=== PATIENT | female | born 1930 | race Two or more races ===

== ENCOUNTER 2018-12-17 14:38 | Inpatient (IN) | payer MEDICARE, MEDICAID ==
[~2018-12-17] VITALS: Ht 162.6 cm; Wt 69.9 kg
--- NOTE | 2018-12-18 17:30 | NUR ---
Admitted from [facility] accompanied by EMT for s/p distal femur condylar fracture. Patient awake, alert x3, Farsi speaking with personal home care rn. Not in any form of distress, no SOB, headaches, chest pains noted. Patient with pain over left leg area rated as 8/10. Routine admission care done. Dr Vivas aware of admission. Oriented and informed patient about unit and therapy.
[2018-12-18] MEDS ORDERED: Z GUARD REMEDY PASTE 57 GM TUBE TOP PRN (17:45)
--- NOTE | 2018-12-18 18:00 | NUR ---
LITERACY EDUCATION PROFESSOR JARROD INFORMED OF BP 176/81 NJ 82. NO SOB, CHEST PAINS OR DIZZINESS NOTED. LITERACY EDUCATION PROFESSOR JARROD ORDERED CLONIDINE 0.1MG Q6HPRN GIVEN AND MEDICATION RECONCILIATION DONE.
[2018-12-18] MEDS ORDERED: MAGN400O6 PO (18:16)
[2018-12-18] MEDS ORDERED: ACET-2154 PO (18:16)
[2018-12-18] MEDS ORDERED: HYDR-3326 PO (18:16)
[2018-12-18] MEDS ORDERED: MAG-82 PO (18:16)
[2018-12-18] MEDS ORDERED: PANT40TA4 PO (18:16)
[2018-12-18] MEDS ORDERED: ZOLP5TAB8 PO (18:16)
[2018-12-18] MEDS ORDERED: GABA-534 PO (18:16)
[2018-12-18 18:41] VITALS: BP 176/81
--- NOTE | 2018-12-18 18:45 | NUR ---
Seen and examined by Yao Puente 5-325mg 4H PRN ordered.
[2018-12-18 18:53] VITALS: BP 176/81
[2018-12-18] MEDS: CLONIDINE HCL 0.1 MG TABLET PO PRN (19:00)
--- NOTE | 2018-12-18 19:00 | NUR ---
Awake, in bed, during initial rounds. Presented complaints of lower extremities but claiming she had those for long time and she's used to it. Refused pain meds offered. Safety measure and fall precaution maintained. Continue plan of care.
[2018-12-18 19:32] VITALS: BP 107/59
[2018-12-18] MEDS: HYDROCODONE/APAP 5-325MG TABLET PO PRN (20:53)
--- NOTE | 2018-12-18 20:55 | NUR ---
Medicated for right hip pain as needed and ordered. Will monitor.
[2018-12-18] MEDS ORDERED: GABAPENTIN 300 MG CAPSULE PO SCH (21:00)
--- NOTE | 2018-12-19 05:26 | NUR ---
Shift End Report: VS stable. Medicated once for pain. No further complaint presented. Slept good. No fall/injury reported. All needs attended and met. No significant event reported all night. Continue rehab plan of care.
[2018-12-19] MEDS: PANTOPRAZOLE SODIUM 40 MG TABLET.DR PO SCH (05:33)
[2018-12-19 05:50] VITALS: BP 108/59
[2018-12-19 07:00] LABS: BASOPHILS # (AUTO) 0.1 K/uL (0.0-8.0); BASOPHILS % (AUTO) 1.8 % (0.0-2.0); EOSINOPHILS # (AUTO) 0.3 K/uL (0.0-0.7); EOSINOPHILS % (AUTO) 8.6 % (0.0-7.0); HEMATOCRIT 24.5 % (31.2-41.9); HEMOGLOBIN 8.4 g/dL (10.9-14.3); LYMPHOCYTES # (AUTO) 0.9 K/uL (20.0-40.0); MEAN CORPUSCULAR HEMOGLOBIN 31.7 uug (24.7-32.8); MEAN CORPUSCULAR HGB CONC 34 g/dL (32.3-35.6); MEAN CORPUSCULAR VOLUME 92.4 fL (75.5-95.3); MONOCYTES # (AUTO) 0.3 K/uL (2.0-10.0); MONOCYTES % (AUTO) 7.8 % (0.0-11.0); NEUTROPHILS # (AUTO) 1.9 K/uL (1.8-8.9); NEUTROPHILS % (AUTO) 54.8 % (38.5-71.5); PLATELET COUNT (AUTO) 148 K/uL (179-408); RED BLOOD CELL COUNT(AUTO) 2.65 MIL/uL (3.63-4.92); WHITE BLOOD COUNT (AUTO) 3.5 K/uL (3.8-11.8)
[2018-12-19 07:19] LABS: ALANINE AMINOTRANSFERASE 12 U/L (14-59); ALKALINE PHOSPHATASE 57 U/L (50-136); ASPARTATE AMINOTRANSFERASE 14 U/L (15-37); BILIRUBIN,TOTAL 0.8 mg/dL (0.2-1.0); CARBON DIOXIDE 30 mmol/L (21-32); CHLORIDE 99 mmol/L (98-107); CREATININE 0.9 mg/dL (0.6-1.3); GLUCOSE 101 mg/dL (74-106); MAGNESIUM 1.8 mg/dL (1.8-2.4); PHOSPHOROUS 4.4 mg/dL (2.5-4.9); POTASSIUM 4.3 mmol/L (3.5-5.1); TOTAL PROTEIN, SERUM 5.8 g/dL (6.4-8.2); UREA NITROGEN, BLOOD 13 mg/dL (7-18)
[2018-12-19 07:30] VITALS: BP 108/51
[2018-12-19] MEDS ORDERED: GABA-534 PO (07:57)
--- NOTE | 2018-12-19 08:30 | NUR ---
received patient, awake, alert x3, resting in bed with personal family day care worker at bedside. With pain over left leg and hip area rated as 8/10. PRN [place] given. Patient afebrile, no s/s of infection. Not in any form of distress no SOB or chest pains noted.
[2018-12-19] MEDS: GABAPENTIN 300 MG CAPSULE PO SCH ×3 (08:43→17:25)
[2018-12-19] MEDS: HYDROCODONE/APAP 5-325MG TABLET PO PRN ×3 (08:43→22:19)
--- NOTE | 2018-12-19 09:30 | NUR ---
Able to ambulate with front wheel walker, tolerated therapy well. With tolerable pain over left arm. Addendum: 12/19/18 at 1307 by KAYLA ABARCA RN RN Patient was not able to ambulate but only stand with assistance.
--- NOTE | 2018-12-19 12:20 | NUR ---
Dr. Long/ ID informed of consult.
[2018-12-19 16:25] VITALS: BP 130/56
[2018-12-19 20:06] VITALS: BP 128/55
[2018-12-19 22:24] LABS: *BILIRUBIN,URIN NEGATIVE (NEGATIVE); *BLOOD, URINE NEGATIVE (NEGATIVE); *CLARITY,URINE SLIGHTLY CLOUDY (CLEAR); *COLOR,URINE YELLOW (YELLOW); *KETONES,URINE NEGATIVE (NEGATIVE); LEUKOCYTE ESTERASE ,URINE TRACE (NEGATIVE); NITRITE, URINE NEGATIVE (NEGATIVE); PH,URINE 5.5 (5.0-8.0); UGLUCOSE NEGATIVE (NEGATIVE)
[2018-12-19 22:32] LABS: BACTERIA,URINE 1 /HPF (NONE SEEN); SQUAMOUS EPITHELIAL CELL,UR MANY /HPF (NONE SEEN)
--- NOTE | 2018-12-20 00:50 | NUR ---
aaox3-4 received in bed. no complaints presented at beginning of shift. no acute distress noted. VSS, voiding freely in bedpan. UA for urinalysis collected and sent to lab. needs attended. complained of pain in left hip [place] 1 tab given as ordered. Relief noted, will monitor patient. fall precautions maintained. siderails up for safety.
[2018-12-20 05:10] VITALS: BP 127/64
[2018-12-20] MEDS: PANTOPRAZOLE SODIUM 40 MG TABLET.DR PO SCH (06:03)
[2018-12-20] MEDS: GABAPENTIN 300 MG CAPSULE PO SCH ×3 (08:20→16:12)
--- NOTE | 2018-12-20 09:03 | NUR ---
INTERDISCIPLINARY TEAM CONFERENCE
[2018-12-20 09:34] VITALS: BP 149/67
[2018-12-20] MEDS: HYDROCODONE/APAP 5-325MG TABLET PO PRN ×2 (15:08→22:44)
[2018-12-20] MEDS: CLONIDINE HCL 0.1 MG TABLET PO PRN (16:12)
[2018-12-20 16:57] VITALS: BP 154/77
--- NOTE | 2018-12-20 18:18 | NUR ---
Patient refused to speech therapy consult. Continue on pain management with good effect. not in distress. Continue therapy for unsteady gait, transfer and ambulation. will continue monitor
--- NOTE | 2018-12-20 19:30 | NUR ---
Patient received in bed, watching TV. Alert and oriented x 3-4. Farsi speaking, but able to make needs known in Syriac. No C/O pain or SOB upon assessment. Urine culture pending. Side rails up bilaterally for safety. Call light and frequently used items within reach. Will continue to monitor.
[2018-12-20 19:50] VITALS: BP 108/53
[2018-12-21 05:05] VITALS: BP 121/58
[2018-12-21] MEDS: PANTOPRAZOLE SODIUM 40 MG TABLET.DR PO SCH (06:17)
[2018-12-21] MEDS: MAGNESIUM HYDROXIDE 30 ML LIQUID UDC PO PRN (06:49)
[2018-12-21 08:00] VITALS: BP 153/76
[2018-12-21] MEDS: GABAPENTIN 300 MG CAPSULE PO SCH ×3 (08:37→16:30)
[2018-12-21] MEDS: HYDROCODONE/APAP 5-325MG TABLET PO PRN ×2 (08:37→20:13)
--- NOTE | 2018-12-21 11:12 | NUR ---
Patient received in bed in stable condition. Continue therapy for ambulation, ADL, and unsteady gait. Continue pain management prior therapy and if needed. not in distress. will continue monitor
[2018-12-21 16:05] VITALS: BP 152/68
--- NOTE | 2018-12-21 19:32 | NUR ---
Patient received in bed, watching TV. Alert and oriented x 3-4. Farsi speaking, but able to make needs known in Japanese. C/O pain upon assessment. Will administer. No C/O SOB or distress upon assessment. Urine culture no new orders at this time. Side rails up bilaterally for safety. Call light and frequently used items within reach. Will continue to monitor.
[2018-12-21] MEDS: CLONIDINE HCL 0.1 MG TABLET PO PRN (20:13)
[2018-12-21 20:37] VITALS: BP 170/72
[2018-12-22] MEDS: PANTOPRAZOLE SODIUM 40 MG TABLET.DR PO SCH (06:06)
[2018-12-22 06:21] VITALS: BP 150/72
[2018-12-22 06:44] LABS: BASOPHILS # (AUTO) 0.1 K/uL (0.0-8.0); BASOPHILS % (AUTO) 1.9 % (0.0-2.0); EOSINOPHILS # (AUTO) 0.3 K/uL (0.0-0.7); EOSINOPHILS % (AUTO) 6.5 % (0.0-7.0); HEMATOCRIT 26.3 % (31.2-41.9); HEMOGLOBIN 8.9 g/dL (10.9-14.3); LYMPHOCYTES # (AUTO) 1.3 K/uL (20.0-40.0); LYMPHOCYTES % (AUTO) 27.8 % (20.5-51.5); MEAN CORPUSCULAR HEMOGLOBIN 31.3 uug (24.7-32.8); MEAN CORPUSCULAR HGB CONC 34 g/dL (32.3-35.6); MEAN CORPUSCULAR VOLUME 92.2 fL (75.5-95.3); MONOCYTES # (AUTO) 0.4 K/uL (2.0-10.0); MONOCYTES % (AUTO) 7.8 % (0.0-11.0); NEUTROPHILS # (AUTO) 2.6 K/uL (1.8-8.9); PLATELET COUNT (AUTO) 187 K/uL (179-408); RED BLOOD CELL COUNT(AUTO) 2.85 MIL/uL (3.63-4.92); WHITE BLOOD COUNT (AUTO) 4.7 K/uL (3.8-11.8)
[2018-12-22 06:58] LABS: CARBON DIOXIDE 29 mmol/L (21-32); CHLORIDE 100 mmol/L (98-107); CREATININE 0.9 mg/dL (0.6-1.3); GLUCOSE 95 mg/dL (74-106); POTASSIUM 4.6 mmol/L (3.5-5.1); UREA NITROGEN, BLOOD 15 mg/dL (7-18)
[2018-12-22 07:15] VITALS: BP 146/81
[2018-12-22] MEDS: GABAPENTIN 300 MG CAPSULE PO SCH ×3 (08:20→16:45)
[2018-12-22] MEDS: HYDROCODONE/APAP 5-325MG TABLET PO PRN ×2 (08:21→14:09)
--- NOTE | 2018-12-22 14:31 | NUR ---
Pt received this morning in bed resting. Pt assessed, AOx3-4, able to make needs known, no acute distress or SOB. VSS on RA. [place] administered per PRN orders for left hip pain -01/18. Pt compliant with routine medications and cooperative with therapies as offered. Family visited at bedside for lunch. Bed in locked and lowest position, with side rails up x2. Personal items and call light placed within reach. All safety and comfort measures implemented. Will continue to monitor.
[2018-12-22 15:15] VITALS: BP 148/72
--- NOTE | 2018-12-22 19:35 | NUR ---
Patient received in bed. Alert and oriented x 4. Farsi speaking, but able to make needs known in Bulgarian. No C/O of pain,SOB or distress upon assessment. Patient requesting sleeping pill for this evening. Side rails up bilaterally for safety. Call light and frequently used items within reach. Will continue to monitor.
[2018-12-22 19:39] VITALS: BP 143/71
[2018-12-22] MEDS: ZOLPIDEM 5 MG TABLET PO PRN (20:58)
[2018-12-23] MEDS: HYDROCODONE/APAP 5-325MG TABLET PO PRN ×4 (01:50→21:23)
[2018-12-23 04:40] VITALS: BP 166/78
[2018-12-23] MEDS: PANTOPRAZOLE SODIUM 40 MG TABLET.DR PO SCH (06:14)
[2018-12-23] MEDS: CLONIDINE HCL 0.1 MG TABLET PO PRN (06:14)
--- NOTE | 2018-12-23 08:20 | NUR ---
Received patient, awake, alert x3. Not in any from of distress. With pain over left hip/leg area rated as 8/10. Kelin-care done, assisted to chair for therapy. Will continue to monitor.
[2018-12-23 08:37] VITALS: BP 120/67
[2018-12-23] MEDS: GABAPENTIN 300 MG CAPSULE PO SCH ×3 (08:47→17:11)
--- NOTE | 2018-12-23 08:56 | NUR ---
INTERDISCIPLINARY TEAM CONFERENCE
--- NOTE | 2018-12-23 09:30 | NUR ---
Up with physical therapy, tolerating well but still unable to ambulate. PRN Norco5-325 given prior to therapy.
[2018-12-23 16:30] VITALS: BP 139/66
[2018-12-23 19:48] VITALS: BP 126/70
[2018-12-23] MEDS ORDERED: HYDROMORPHONE 1 MG/1 ML DISP.SYRIN IM PRN (21:45)
--- NOTE | 2018-12-23 21:48 | NUR ---
resting in bed upon initial rounds. aaox4. no acute distress noted. kept comfortable. will monitor patient.needs attended. voiding well. VSS. fall precautions maintained. siderails up for safety.
[2018-12-23] MEDS: ZOLPIDEM 5 MG TABLET PO PRN (22:04)
[2018-12-24 05:05] VITALS: BP 179/79
--- NOTE | 2018-12-24 06:13 | NUR ---
slept well most of the shift. VSS no acute distress noted. voiding freely. quiet night. no complaints presented during shift.
[2018-12-24] MEDS: PANTOPRAZOLE SODIUM 40 MG TABLET.DR PO SCH (06:28)
[2018-12-24] MEDS: CLONIDINE HCL 0.1 MG TABLET PO PRN (06:29)
[2018-12-24 08:31] VITALS: BP 132/64
[2018-12-24] MEDS: GABAPENTIN 300 MG CAPSULE PO SCH ×3 (08:35→17:04)
[2018-12-24] MEDS: HYDROCODONE/APAP 5-325MG TABLET PO PRN ×3 (08:36→21:53)
--- NOTE | 2018-12-24 11:24 | NUR ---
Patient continue to complaint of pain/discomfort on left leg thigh. Pain management given- norco 5-325mg every 4 hours PRN given. Applied ice compress on the site. MD Vivas aware. US of left leg ordered. will continue monitor
[2018-12-24 16:34] VITALS: BP 157/69
[2018-12-24 18:06] VITALS: BP 142/82
--- NOTE | 2018-12-24 20:38 | NUR ---
Received pt resting in bed. AAO x3-4. No acute distress noted. Denies pain or discomfort. Safety measures maintained. Call light and personal belongings within reach. Will continue to monitor.
[2018-12-24 20:47] VITALS: BP 125/68
[2018-12-24] MEDS: ZOLPIDEM 5 MG TABLET PO PRN (21:53)
[2018-12-25 04:00] VITALS: BP 147/68
[2018-12-25] MEDS: PANTOPRAZOLE SODIUM 40 MG TABLET.DR PO SCH (06:19)
[2018-12-25] MEDS: CLONIDINE HCL 0.1 MG TABLET PO PRN ×2 (08:31→20:22)
[2018-12-25] MEDS: GABAPENTIN 300 MG CAPSULE PO SCH ×3 (08:31→16:37)
--- NOTE | 2018-12-25 09:00 | NUR ---
Received pt. in bed in no distress. A/OX3-4 verbally responsive and able to make her needs known. No new skin condition. All needs attended and met promptly. All due medications given as ordered and tolerated well. Safety measures in place. Call light and all frequently used items within pt. reach. Will continue to monitor accordingly.
[2018-12-25 09:27] VITALS: BP 161/103
[2018-12-25 16:16] VITALS: BP 144/82
[2018-12-25] MEDS: HYDROCODONE/APAP 5-325MG TABLET PO PRN ×2 (18:14→23:10)
--- NOTE | 2018-12-25 18:24 | NUR ---
End of shift note: All needs attended and met promptly. Safety measures in placed. Bed in low position, brake on, side rails up x2 as an enabler. Call light and all frequently used items within pt. reach. Will endorse to next shift accordingly.
[2018-12-25] MEDS ORDERED: TRIAMCINOLONE ACETONIDE 40 MG/1 ML VIAL IM ONE (19:00)
[2018-12-25] MEDS ORDERED: LIDOCAINE HCL 1% 20 ML VIAL IJ ONE (19:00)
--- NOTE | 2018-12-25 19:22 | NUR ---
Dr. Vivas with order to d/c previous Lidocaine and Kenalog order. Orders noted and carried out. Pt. made aware.
--- NOTE | 2018-12-25 19:52 | NUR ---
Patient received in bed. Alert and oriented x 4. Farsi speaking, but able to make needs known in Fijian. No C/O of pain, SOB or distress upon assessment. Patient requesting sleeping pill for this evening. Side rails up bilaterally for safety. Call light and frequently used items within reach. Will continue to monitor.
[2018-12-25 20:45] VITALS: BP 167/74
[2018-12-25] MEDS: ZOLPIDEM 5 MG TABLET PO PRN (21:09)
--- NOTE | 2018-12-25 21:13 | NUR ---
Patient states that she wishes to . That she "doesn't understand why god has chosen me for this suffering" and that she "does not wish to be living anymore." She "doesn't want to feel pain anymore" and she wants "her life to end quickly". She "Has lived a long time, and would like to see god and ask him why he is making her suffer." Consult ordered for a psychiatrist. Will continue to monitor.
[2018-12-26 04:56] VITALS: BP 134/65
[2018-12-26] MEDS: PANTOPRAZOLE SODIUM 40 MG TABLET.DR PO SCH (06:03)
[2018-12-26 07:30] VITALS: BP 150/75
[2018-12-26] MEDS: GABAPENTIN 300 MG CAPSULE PO SCH ×3 (08:21→16:24)
[2018-12-26] MEDS: LIDOCAINE 5% PATCH TD SCH (08:21)
[2018-12-26] MEDS: OXYCODONE HCL 5 MG TABLET PO PRN ×2 (08:23→16:24)
--- NOTE | 2018-12-26 08:52 | NUR ---
Received pt. in bed in no distress. A/OX3-4 verbally responsive and able to make her needs known. No new skin condition. All needs attended and met promptly. All due medications given as ordered and tolerated well. Pt. C/O 4-5/10 pain on Lt. knee. Applied 2 Lidoderm patches on lt. knee and PRN OXYir given as ordered . Safety measures in place. Call light and all frequently used items within pt. reach. Will continue to monitor accordingly.
--- NOTE | 2018-12-26 12:31 | NUR ---
Pt. seen and examined by Dr. Koo (Psych). Pt. started on Cymbalta for depression and pain mgt.
[2018-12-26] MEDS: DULOXETINE 30 MG CAPSULE.DR PO SCH (12:38)
[2018-12-26 16:33] VITALS: BP 105/63
--- NOTE | 2018-12-26 18:09 | NUR ---
End of shift note: No significant change during this shift. PVT caregiver at bedside for support during shift. All needs attended and met promptly. Safety measures in placed. Bed in low position, brake on, side rails up x2 as an enabler. Call light and all frequently used items within pt. reach. Will endorse to next shift accordingly.
--- NOTE | 2018-12-26 19:10 | NUR ---
Awake, in bed during initial rounds. Complaint of headache at this time. Refused OXY IR and requesting Tylenol. Will call MD for an order. Assessed s/s of hypertension. Safety measure and fall precaution maintained. Continue care as planned.
--- NOTE | 2018-12-26 19:45 | NUR ---
Called [facility] [facility] for an order of Tylenol. Anticipating MD to call back.
[2018-12-26] MEDS ORDERED: ACETAMINOPHEN 325 MG TABLET-SA PATIENTS-PAIN ONLY PO PRN (20:00)
--- NOTE | 2018-12-26 20:10 | NUR ---
Dr Rizo called back with Tylenol 650 mg po q 6 HOURS prn order noted and carried out.
[2018-12-26 20:18] VITALS: BP 133/63
[2018-12-26] MEDS ORDERED: ACETAMINOPHEN 325 MG TABLET PO PRN (20:30)
--- NOTE | 2018-12-26 20:49 | NUR ---
Medicated with Tylenol for complaint of headache. Will monitor.
[2018-12-27] MEDS: OXYCODONE HCL 5 MG TABLET PO PRN ×3 (03:33→21:22)
--- NOTE | 2018-12-27 03:35 | NUR ---
Awakened and complaining of left hip pain, medicated as needed and as ordered. Will monitor.
[2018-12-27] MEDS: PANTOPRAZOLE SODIUM 40 MG TABLET.DR PO SCH (05:58)
[2018-12-27 06:08] VITALS: BP 103/55
--- NOTE | 2018-12-27 06:49 | NUR ---
Shift End Report: VS stable. Slept good. No further complaint of pain presented. All needs attended and met. No significant event reported. Continue current rehab plan of care.
--- NOTE | 2018-12-27 08:30 | NUR ---
Received patient, awake, alert x3. With personal computer network analyst at bedside. With pain over left knee area, Lidoderm patch applied. Will continue to monitor. Not in any form of distress.
[2018-12-27 09:00] VITALS: BP 129/63
[2018-12-27] MEDS: GABAPENTIN 300 MG CAPSULE PO SCH ×3 (09:02→17:21)
[2018-12-27] MEDS: LIDOCAINE 5% PATCH TD SCH (09:02)
[2018-12-27] MEDS: DULOXETINE 30 MG CAPSULE.DR PO SCH (09:02)
--- NOTE | 2018-12-27 11:12 | NUR ---
Up with physical therapy, tolerating well. Patient unable to ambulate tried to ambulate only 5 feet with maximum assistance.
--- NOTE | 2018-12-27 13:00 | NUR ---
Vomited x1, previously ingested food, no abdominal pain or diarrhea, afebrile. Informed Dr. Rizo ordered Zofran [address]N. Dr Vivas made aware and ordered Zofran daily with Angel.
--- NOTE | 2018-12-27 13:10 | NUR ---
INTERDISCIPLINARY TEAM CONFERENCE
[2018-12-27] MEDS ORDERED: ONDANSETRON ODT 4 MG TAB.RAPDIS SL PRN (13:15)
[2018-12-27 16:47] VITALS: BP 127/66
--- NOTE | 2018-12-27 19:05 | NUR ---
In bed, awake, very pleasant, denies any pain/discomforts at this time. Safety measure and fall precaution maintained. Continue care as planned.
[2018-12-27 19:44] VITALS: BP 140/74
[2018-12-27] MEDS: ZOLPIDEM 5 MG TABLET PO PRN (21:21)
[2018-12-28 05:36] VITALS: BP 120/56
[2018-12-28] MEDS: PANTOPRAZOLE SODIUM 40 MG TABLET.DR PO SCH (05:48)
--- NOTE | 2018-12-28 06:30 | NUR ---
Shift End Report: VSS. Slept good. Medicated once for pain with relief. No further complaint presented . All needs attended and met. No significant event reported. Continue current rehab plan of care.
[2018-12-28 08:00] VITALS: BP 143/66
--- NOTE | 2018-12-28 08:20 | NUR ---
Received patient, awake, alert x3. Not in any form of distress. With pain over left knee and lower back rated as 8/10. Cold pack applied over knee area as ordered.
--- NOTE | 2018-12-28 09:15 | NUR ---
Up with physical therapy, tolerating well. PRN Oxyir 10 mg given prior to therapy. Was not able to ambulate. Kept Knee immobilizer on when out of bed.
[2018-12-28] MEDS: DULOXETINE 30 MG CAPSULE.DR PO SCH (09:29)
[2018-12-28] MEDS: ONDANSETRON HCL 4 MG TABLET PO SCH (09:29)
[2018-12-28] MEDS: GABAPENTIN 300 MG CAPSULE PO SCH ×3 (09:29→17:37)
[2018-12-28] MEDS: OXYCODONE HCL 5 MG TABLET PO PRN ×2 (09:30→20:16)
[2018-12-28] MEDS: LIDOCAINE 5% PATCH TD SCH (09:36)
[2018-12-28 16:46] VITALS: BP 129/64
[2018-12-28 20:28] VITALS: BP 127/62
--- NOTE | 2018-12-28 20:46 | NUR ---
Received pt resting in bed and watching tv. AAO x3. No acute distress noted. C/o 7/10 pain on the left knee. PRN pain med given as ordered. Safety measures maintained. Call light and personal belongings within reach. Will continue to monitor.
[2018-12-28] MEDS: ZOLPIDEM 5 MG TABLET PO PRN (21:31)
[2018-12-29 04:00] VITALS: BP 145/75
[2018-12-29] MEDS: PANTOPRAZOLE SODIUM 40 MG TABLET.DR PO SCH (06:15)
[2018-12-29] MEDS: DULOXETINE 30 MG CAPSULE.DR PO SCH (08:31)
[2018-12-29] MEDS: ONDANSETRON HCL 4 MG TABLET PO SCH (08:32)
[2018-12-29] MEDS: GABAPENTIN 300 MG CAPSULE PO SCH ×3 (08:32→17:17)
[2018-12-29] MEDS: LIDOCAINE 5% PATCH TD SCH (08:33)
[2018-12-29] MEDS: OXYCODONE HCL 5 MG TABLET PO PRN ×2 (08:33→17:18)
[2018-12-29 08:46] VITALS: BP 148/72
[2018-12-29] MEDS: MAGNESIUM HYDROXIDE 30 ML LIQUID UDC PO PRN (17:20)
[2018-12-29 17:56] VITALS: BP 147/72
[2018-12-29] MEDS: ZOLPIDEM 5 MG TABLET PO PRN (20:54)
[2018-12-29 21:09] VITALS: BP 124/71
--- NOTE | 2018-12-29 21:14 | NUR ---
Received pt resting in bed. AAO x3. No acute distress noted. Denies pain/ discomfort. Pt requested ambien for sleep, med given as ordered. Safety measures maintained. Call light and personal belongings within reach. Will continue to monitor.
[2018-12-30 04:30] VITALS: BP 148/71
[2018-12-30] MEDS: PANTOPRAZOLE SODIUM 40 MG TABLET.DR PO SCH (05:45)
--- NOTE | 2018-12-30 07:41 | NUR ---
patient noted resting in bed with eyes closed, no facial cues of pain noted, no signs of distress noted, call light noted in reach, bed locked and in lower position, all needs met at this time
[2018-12-30 08:04] VITALS: BP 148/72
[2018-12-30] MEDS: ONDANSETRON HCL 4 MG TABLET PO SCH (08:21)
[2018-12-30] MEDS: OXYCODONE HCL 5 MG TABLET PO PRN ×2 (08:21→16:32)
[2018-12-30] MEDS: GABAPENTIN 300 MG CAPSULE PO SCH ×3 (08:21→16:31)
[2018-12-30] MEDS: DULOXETINE 30 MG CAPSULE.DR PO SCH (08:21)
[2018-12-30] MEDS: LIDOCAINE 5% PATCH TD SCH (08:24)
[2018-12-30 17:02] VITALS: BP 122/64
[2018-12-30 17:10] VITALS: BP 139/74
[2018-12-30] MEDS ORDERED: SHARK LIVER OIL/PETROLAT OINT 60 GM TUBE RC PRN (18:00)
[2018-12-30 20:09] VITALS: BP 123/68
[2018-12-31 05:20] VITALS: BP 126/69
[2018-12-31] MEDS: PANTOPRAZOLE SODIUM 40 MG TABLET.DR PO SCH (06:19)
--- NOTE | 2018-12-31 06:28 | NUR ---
Pt is sleeping comfortably in bed, bed in lowest position, bed alarm is on. No fever, no nausea and no vomiting. Pt reports 0/10 pain at the moment.
[2018-12-31 07:47] VITALS: BP 155/73
--- NOTE | 2018-12-31 08:00 | NUR ---
Received patient, awake, alert x4. With healthcare business analyst at bedside. Not in any form of distress. With pain over left knee rated as 8/10. Morning care done. Assisted to wheelchair for breakfast.
[2018-12-31] MEDS: ONDANSETRON HCL 4 MG TABLET PO SCH (08:46)
[2018-12-31] MEDS: DULOXETINE 30 MG CAPSULE.DR PO SCH (08:46)
[2018-12-31] MEDS: GABAPENTIN 300 MG CAPSULE PO SCH ×3 (08:46→17:06)
[2018-12-31] MEDS: LIDOCAINE 5% PATCH TD SCH (08:46)
[2018-12-31] MEDS: OXYCODONE HCL 5 MG TABLET PO PRN (08:47)
--- NOTE | 2018-12-31 09:19 | NUR ---
Up with physical therapy, tolerating well. Pain medications Oxyir 10 mg PRN given prior to therapy, coaching with critical care physician on changing diapers and kathleen-care done. Will be coaching caregiver on transfers with PT and OT.
[2018-12-31] MEDS ORDERED: BISACODYL 5 MG TABLET.DR PO PRN (15:45)
[2018-12-31 16:16] VITALS: BP 112/62
[2018-12-31 19:35] VITALS: BP 149/71
--- NOTE | 2018-12-31 20:30 | NUR ---
Received pt lying on bed awake, watching TV. Pt is alert and oriented x 3, able to verbalize needs. No c/o pain or discomfort. Kept clean, dry and comfortable. Will continue with current plan of care.
[2019-01-01 05:10] VITALS: BP 138/71
[2019-01-01] MEDS: PANTOPRAZOLE SODIUM 40 MG TABLET.DR PO SCH (06:07)
[2019-01-01 07:12] LABS: BASOPHILS # (AUTO) 0.1 K/uL (0.0-8.0); BASOPHILS % (AUTO) 1.2 % (0.0-2.0); EOSINOPHILS # (AUTO) 0.3 K/uL (0.0-0.7); EOSINOPHILS % (AUTO) 7.1 % (0.0-7.0); HEMATOCRIT 26.5 % (31.2-41.9); HEMOGLOBIN 8.9 g/dL (10.9-14.3); LYMPHOCYTES # (AUTO) 0.9 K/uL (20.0-40.0); LYMPHOCYTES % (AUTO) 21.2 % (20.5-51.5); MEAN CORPUSCULAR HEMOGLOBIN 31.2 uug (24.7-32.8); MEAN CORPUSCULAR HGB CONC 34 g/dL (32.3-35.6); MEAN CORPUSCULAR VOLUME 92.6 fL (75.5-95.3); MONOCYTES # (AUTO) 0.3 K/uL (2.0-10.0); MONOCYTES % (AUTO) 6.9 % (0.0-11.0); NEUTROPHILS # (AUTO) 2.8 K/uL (1.8-8.9); NEUTROPHILS % (AUTO) 63.6 % (38.5-71.5); PLATELET COUNT (AUTO) 201 K/uL (179-408); RED BLOOD CELL COUNT(AUTO) 2.87 MIL/uL (3.63-4.92); WHITE BLOOD COUNT (AUTO) 4.5 K/uL (3.8-11.8)
[2019-01-01 07:31] LABS: IRON, SERUM 40 ug/dL (50-175)
[2019-01-01 07:40] LABS: THYROID STIMULATING HORMONE 2.464 mIU/mL (0.358-3.740)
[2019-01-01 07:53] LABS: ALANINE AMINOTRANSFERASE 16 U/L (14-59); ALKALINE PHOSPHATASE 105 U/L (50-136); ASPARTATE AMINOTRANSFERASE 12 U/L (15-37); BILIRUBIN,TOTAL 0.5 mg/dL (0.2-1.0); CARBON DIOXIDE 31 mmol/L (21-32); CHLORIDE 97 mmol/L (98-107); CHOLESTEROL 159 mg/dL (<200); CREATININE 0.7 mg/dL (0.6-1.3); GLUCOSE 98 mg/dL (74-106); HDL CHOLESTEROL 42 mg/dL (40-60); PHOSPHOROUS 3.3 mg/dL (2.5-4.9); TRIGLYCERIDES 129 MG/DL (30-150); UREA NITROGEN, BLOOD 12 mg/dL (7-18)
[2019-01-01] MEDS: ONDANSETRON HCL 4 MG TABLET PO SCH (08:52)
[2019-01-01] MEDS: DULOXETINE 30 MG CAPSULE.DR PO SCH (08:52)
[2019-01-01] MEDS: GABAPENTIN 300 MG CAPSULE PO SCH ×3 (08:52→17:30)
[2019-01-01] MEDS: LIDOCAINE 5% PATCH TD SCH (08:53)
[2019-01-01 08:58] VITALS: BP 167/81
[2019-01-01] MEDS: CLONIDINE HCL 0.1 MG TABLET PO PRN (09:02)
[2019-01-01 15:50] VITALS: BP 111/64
--- NOTE | 2019-01-01 18:32 | NUR ---
End of shift note: No significant change during this shift. All needs attended and met promptly. Safety measures in placed. Bed in low position, brake on, side rails up x2 as an enabler. Call light and all frequently used items within pt. reach. Will endorse to next shift accordingly.
[2019-01-01 19:53] VITALS: BP 116/59
--- NOTE | 2019-01-02 04:24 | NUR ---
Received pt lying on bed awake watching TV. No SOB denies any discomfort. All needs attended to, kept clean dry and comfortable. Fall precautions in place, pt uses call light as needed placed within easy reach. Will continue with current plan of care.
[2019-01-02 05:11] VITALS: BP 152/70
[2019-01-02] MEDS: PANTOPRAZOLE SODIUM 40 MG TABLET.DR PO SCH (05:27)
[2019-01-02 07:56] LABS: *OCCULT BLOOD STOOL NEGATIVE (NEGATIVE)
[2019-01-02 08:43] VITALS: BP 140/76
[2019-01-02] MEDS: DULOXETINE 30 MG CAPSULE.DR PO SCH (08:44)
[2019-01-02] MEDS: ONDANSETRON HCL 4 MG TABLET PO SCH (08:44)
[2019-01-02] MEDS: GABAPENTIN 300 MG CAPSULE PO SCH ×2 (08:44→12:14)
[2019-01-02] MEDS: LIDOCAINE 5% PATCH TD SCH (08:45)
--- NOTE | 2019-01-02 09:29 | NUR ---
Received pt. in bed in no distress. A/OX3-4 verbally responsive and able to make her needs known. No new skin condition. Pt. scheduled to d/c home at 3PM. Dr. Vivas with order to d/c pt. home. TMS signed by Dr. Sai Hines. All needs attended and met promptly. All due medications given as ordered and tolerated well. Safety measures in place. Call light and all frequently used items within pt. reach. Will continue to monitor accordingly.
--- NOTE | 2019-01-02 15:21 | NUR ---
Discharge Note: Pt. received all due medication as ordered. ADL performed with RN and tolerated well. Resident remained stable at this time. Dr. Vivas deemed pt. safe for discharge today 01/02/19. Routine round with pt; pt. remain cooperative, A/OX4 with capacity to make decision. Lungs sounds clear to auscultation bilaterally, no respiratory distress. Heart with regular rate and rhythm, no murmur, rub or gallop. Abdomen soft, non-tender, bowel sounds present in all 4 quadrants. Conjunctivae clear, PERRL. Pt. served with lunch as ordered and tolerated well. All belongings are prepared. Inventory done all accountable for. Instructed pt. to follow up with PCP. Pt. teaching provided which include but not limited to meds administration, risk of fall, and skin mgt. Faxed RX to pt. choice of pharmacy. Gave pt. information regarding returning to community. Discharge paper signed by pt. Provided pt. discharge packet. No further questions from the resident about the discharge instructions at this time and verbalized clear understanding. DWAIN Reyna arrived on-site @ 1500. Provided report to receiving staff. Res. left the facility at 1510 with EMT staff and caregiver and d/c to home with home health to provide PT/OT/RN. made aware of resident discharge.
== END 2019-01-02 15:10 | disposition home health service (06) | DRG 560 ==
PROVIDERS: ADMIT Physical Medicine & Rehabilitation Pain Medicine; ATTEND Physical Medicine & Rehabilitation Pain Medicine
DX: S72.412D Displaced unspecified condyle fracture of lower end of left femur, subsequent encounter for closed fracture with routine healing (principal); D68.59 Other primary thrombophilia; E44.0 Moderate protein-calorie malnutrition; E87.1 Hypo-osmolality and hyponatremia; I69.354 Hemiplegia and hemiparesis following cerebral infarction affecting left non-dominant side; M86.68 Other chronic osteomyelitis, other site; D69.6 Thrombocytopenia, unspecified; I10 Essential (primary) hypertension; M19.90 Unspecified osteoarthritis, unspecified site; Z96.643 Presence of artificial hip joint, bilateral; D63.8 Anemia in other chronic diseases classified elsewhere; R26.9 Unspecified abnormalities of gait and mobility; W18.30XD Fall on same level, unspecified, subsequent encounter; F03.90 Unspecified dementia, unspecified severity, without behavioral disturbance, psychotic disturbance, mood disturbance, and anxiety; F32.9 Major depressive disorder, single episode, unspecified; F41.9 Anxiety disorder, unspecified; I65.21 Occlusion and stenosis of right carotid artery; I69.323 Fluency disorder following cerebral infarction; M81.0 Age-related osteoporosis without current pathological fracture; Z96.652 Presence of left artificial knee joint; K59.00 Constipation, unspecified; R11.10 Vomiting, unspecified; R25.1 Tremor, unspecified; E86.0 Dehydration; M79.89 Other specified soft tissue disorders
CPT/HCPCS: 36415; 70030-TC; 83550; 83735; 84100; 84443; 85025; 87086; 92523; 97110; 97112; 97116; 97165; 97530; 97535; A9150; J3301; J3490; Q0162